=== PATIENT | male | born 1995 | race Caucasian/White ===

== ENCOUNTER 2019-05-06 22:31 | Emergency (ER) | payer OTHER ==
--- NOTE | 2019-05-07 02:10 | ED ---
Upper Extremity Pain - HPI Summary HPI Summary: Complains of pain and deformity to 5th digit of right hand while playing asked at all tonight. Denies any other pain, injury or symptoms. - History of Current Complaint Chief Complaint: EDExtremityUpper Stated Complaint: RT PINKY INJURY PER PT Hx Obtained From: Patient Mechanism Of Injury: Blunt Trauma Onset/Duration: Started Hours Ago Timing: Constant Severity Initially: Moderate Severity Currently: Moderate Pain Location: Finger Character: Aching, Throbbing Aggravating Factor(s): Movement Alleviating Factor(s): Rest, Ice Associated Signs & Symptoms: Positive: Swelling, Bruising - Allergies/Home Medications Allergies/Adverse Reactions: Allergies Allergy/AdvReac Type Severity Reaction Status Date / Time No Known Allergies Allergy Verified 05/06/19 22:37 PMH/Surg Hx/FS Hx/Imm Hx Endocrine/Hematology History: Denies: Hx Anticoagulant Therapy Cardiovascular History: Denies: Hx Pacemaker/ICD History: Denies: Hx Dialysis Sensory History: Denies: Hx Legally Blind Opthamlomology History: Denies: Hx Eye Prosthesis EENT History: Denies: Hx Deafness Infectious Disease History: No Infectious Disease History: Denies: Traveled Outside the [place] in Last 30 Days - Family History Known Family History: Positive: Non-Contributory - Social History Alcohol Use: None Substance Use Type: Reports: Marijuana Substance Use Comment - Amount & Last Used: "last monday" Smoking Status (MU): Never Smoked Tobacco Review of Systems Constitutional: Negative Eyes: Negative ENT: Negative Cardiovascular: Negative Respiratory: Negative Gastrointestinal: Negative Genitourinary: Negative Musculoskeletal: Other Skin: Negative Neurological: Negative Psychological: Normal All Other Systems Reviewed And Are Negative: Yes Physical Exam - Summary Physical Exam Summary: Obvious deformity to PIP of fifth digit of left hand. No wound noted. Mild swelling and ecchymosis. PMS intact distally. Other digits of right hand abnormal flexion and extension. Triage Information Reviewed: Yes Vital Signs On Initial Exam: Initial Vitals Temp Pulse Resp BP Pulse Ox 98.1 F 88 20 142/88 96 05/06/19 22:36 05/06/19 22:36 05/06/19 22:36 05/06/19 22:36 05/06/19 22:36 Vital Signs Reviewed: Yes Appearance: Positive: Well-Appearing Skin: Positive: Warm Head/Face: Positive: Normal Head/Face Inspection Eyes: Positive: Normal Neck: Positive: Supple Respiratory/Lung Sounds: Positive: Clear to Auscultation Cardiovascular: Positive: Normal Abdomen Description: Positive: Nontender Musculoskeletal: Positive: Normal Neurological: Positive: Normal Psychiatric: Positive: Normal AVPU Assessment: Alert - Arpin Coma Scale Best Eye Response: 4 - Spontaneous Best Motor Response: 6 - Obeys Commands Best Verbal Response: 5 - Oriented Coma Scale Total: 15 Diagnostics - Vital Signs Vital Signs Temp Pulse Resp BP Pulse Ox 05/06/19 22:36 98.1 F 88 20 142/88 96 - Laboratory Lab Statement: Any lab studies that have been ordered have been reviewed, and results considered in the medical decision making process. Course/Dx - Course Course Of Treatment: Complains of pain and deformity to 5th digit of right hand while playing asked at all tonight. Denies any other pain, injury or symptoms. Vital signs within normal limits. X-ray positive for dislocation of PIP. Reduction successful. Splint placed this provider to facilitate healing. - Diagnoses Provider Diagnoses: Dislocation of finger, interphalangeal joint, right, closed Discharge ED - Sign-Out/Discharge Documenting (check all that apply): Patient Departure Patient Received Moderate/Deep Sedation with Procedure: No - Discharge Plan Condition: Stable Disposition: HOME Patient Education Materials: Finger Dislocation (ED) Referrals: [facility] - Yoseph ORELLANA [Primary Care Provider] - Additional Instructions: Wear finger brace for 1 week. Ice and ibuprofen for pain and swelling. - Billing Disposition and Condition Condition: STABLE Disposition: Home
[2019-05-07 02:28] VITALS: BP 120/72
--- NOTE | 2019-05-07 11:00 | PN ---
Progress Note - Progress Note Date of Service: 05/07/19 Note: final read xray: IMPRESSION: DISLOCATION OF THE FIFTH AP JOINT WITH A SMALL FRACTURE AT THE BASE OF THE MIDDLE PHALANX. left vm explaining that has fx. told to keep in splint and follow up with myla or ortho
== END 2019-05-07 02:27 | disposition home or self-care (01) ==
LOC: ED 22:31
DX: S63.276A Dislocation of unspecified interphalangeal joint of right little finger, initial encounter (principal); X58.XXXA Exposure to other specified factors, initial encounter; Y92.9 Unspecified place or not applicable
CPT/HCPCS: 73140; 99281